=== PATIENT | male | born 1960 | race Caucasian/White ===

== ENCOUNTER 2017-03-06 05:47 | Observation (INO) | payer MEDICARE ==
[~2017-03-06] VITALS: Ht 180.3 cm; Wt 85.9 kg
[~2017-03-06 05:47] MED LIST: HYDR-3516 PO; VENTAER INH
[2017-03-06] MEDS ORDERED: CHLORHEXIDINE GLUCONATE 2 % 1 PACK (2 CLOTHS) TOPICAL PRN (06:15)
[2017-03-06] MEDS ORDERED: LACTATED RINGER'S 1000 ML INJ 1,000 ML IV SCH (06:15)
[2017-03-06] MEDS ORDERED: SODIUM CHLORID 0.9% 500 ML IV PRN (06:15)
[2017-03-06] MEDS ORDERED: METOPROLOL TARTRATE 25 MG TAB PO PRN (06:15)
[2017-03-06] MEDS ORDERED: POVIDONE IODINE 5% (ANTISEPSIS KIT) 4 APPLICATIONS EACH NARE PRN (06:15)
[2017-03-06] MEDS ORDERED: LACTATED RINGER'S 1000 ML IV PRN (06:15)
[2017-03-06] MEDS ORDERED: NALOXONE HCL 0.4 MG/ML AMP ONE (06:47)
[2017-03-06] MEDS ORDERED: ACETAMINOPHEN 1000 MG/100 ML 100 ML IV ONE (06:47)
[2017-03-06] MEDS ORDERED: HYDROmorphone HCL PF 2 MG/ML VIAL ONE (06:47)
[2017-03-06] MEDS ORDERED: PROPOFOL 500 MG/50 ML INJ 200 ML ONE (06:47)
[2017-03-06] MEDS ORDERED: LIDOCAINE 1%/EPINEPHrine 1:100,000 SOLN 50 ML VIAL ONE (06:51)
[2017-03-06] MEDS ORDERED: GELFOAM SIZE 100 ONE (06:51)
[2017-03-06] MEDS ORDERED: GENTAMICIN SULFATE 80 MG/2 ML VIAL ONE (06:51)
[2017-03-06] MEDS ORDERED: THROMBIN (TOPICAL) 5,000 UNIT VIAL ONE (06:51)
[2017-03-06] MEDS ORDERED: FAMOTIDINE 20 MG/2 ML VIAL ONE (07:35)
[2017-03-06] MEDS: ceFAZolin 1,000 MG/NS 100 ML IV SCH ×4 (07:50→11:50)
[2017-03-06] MEDS ORDERED: PROPOFOL 500 MG/50 ML INJ 50 ML ONE ×2 (09:19→09:20)
[2017-03-06] MEDS ORDERED: NEOSTIGMINE 3 MG/3 ML SYR IV ONE (12:00)
[2017-03-06] MEDS ORDERED: LACTATED RINGER'S 1000 ML INJ 2,000 ML IV ONE (12:00)
[2017-03-06] MEDS ORDERED: LIDOCAINE HCL 1% PF 5 ML SYRINGE OTHER ONE (12:00)
[2017-03-06] MEDS ORDERED: ceFAZolin INJ 1,000 MG VIAL IV ONE (12:00)
[2017-03-06] MEDS ORDERED: DEXAMETHASONE SOD PHOS 4 MG/ML VIAL IV ONE (12:00)
[2017-03-06] MEDS ORDERED: GLYCOPYRROLATE 1 MG/5 ML SYRINGE IV PUSH ONE (12:00)
[2017-03-06] MEDS ORDERED: PHENYLEPH/NS 1000 MCG/10 ML SYR IV ONE (12:00)
[2017-03-06] MEDS ORDERED: ePHEDrine/NS 25 MG/5 ML SYR IV ONE (12:00)
[2017-03-06] MEDS ORDERED: ONDANSETRON HCL 4 MG/2 ML VIAL IV PUSH ONE (12:00)
[2017-03-06] MEDS ORDERED: MIDAZOLAM HCL 2 MG/2 ML VIAL IV ONE (12:00)
[2017-03-06] MEDS ORDERED: diphenhydrAMINE HCL 50 MG/ML VIAL ONE ×2 (12:42→13:29)
[2017-03-06] MEDS ORDERED: DO NOT ADM ANY ANTICOAGULANT DRUGS PRN (13:02)
[2017-03-06] MEDS ORDERED: NALOXONE HCL 0.4 MG/ML AMP IV PUSH PRN (13:15)
[2017-03-06] MEDS ORDERED: SODIUM CHLORIDE 0.9% FLUSH 5 ML FLUSH IVF PRN (13:15)
--- NOTE | 2017-03-06 13:26 | PD.OP ---
Operative Report Date of Surgery: Mar 06, 2017 Preoperative Diagnosis: (1) Cervical disc disease with myelopathy (2) Cervical spinal stenosis 1. C3 4 posterior osteophytic disc complex 2. Cervical stenosis 3. Cervical myelopathy Postoperative Diagnosis: (1) Cervical disc disease with myelopathy (2) Cervical spinal stenosis 1. C3 4 herniated nucleus pulposus 2. Cervical stenosis 3. Cervical myelopathy Procedure: 1. C3-4 anterior cervical discectomy 2. C3-4 artificial disc placement (Mobi-C) Anesthesia: Gen. Surgeon: Moises Stoll Medical Transcription(s): Sharon Prado Operation and Findings: Findings: Relatively large soft herniated nucleus pulposis posterior to the annulus with a prominent central annular tear. Tearing of the posterior longitudinal ligament away from the posterior C3 vertebral body margin. No significant osteophyte formation. Procedure in detail: The patient was brought into the operating room and positioned in supine position on the 3080 table with the head and neck in neutral position. Nuñez catheter was placed. Lines were established by Anesthesia. Gen. endotracheal anesthesia was induced without difficulty, taking care not to significantly flex or extend the patient's neck during intubation and positioning. Leads for intraoperative neuro monitoring were placed and a baseline study obtained. All extremities were appropriately padded. The neck and upper chest were shaved with clippers and sterilely prepped and draped. Appropriate timeout procedure was performed with all personnel present and in agreement 1% Xylocaine with epinephrine was used for local infiltration over the incision site which was made transversely at the C3-4 level and carried sharply down through the platysma muscle. The exposure was continued medial to the sternocleidomastoid muscle and carotid artery, and lateral to the trachea and esophagus. The prevertebral fascia was elevated away from the anterior longitudinal ligament with a Kitner sponge. The longus coli muscle on each side was elevated with the Gan elevator. The self-retaining retractor was placed with the blades beneath the longus coli muscle on each side. The appropriate levels were confirmed with intraoperative C-arm and preoperative imaging studies. The microscope was brought into place and used for the remainder of the procedure including the closure. The 14 mm distraction pins were used as needed for gentle distraction during the procedure. The procedure was performed at the C3-4 level. The disc and annulus was incised with a 15 blade knife and discectomy performed with pituitary biopsy forceps and straight and angled curettes. The endplates were thoroughly cleaned with a curette. The TPS drill with the 4 mm barrel bur was used to straighten the anterior margin of the C3 and C4 vertebral body and contour the superior C4 lateral endplate for the artificial disc placement. The thin ligament dissector was used to free up the posterior annulus and ligament from the vertebral body margin. The remainder of the resection of the posterior annulus and ligament as well as the posterior vertebral body margin and bilateral dorsal uncovertebral joint as needed was performed with the 2 and 3 mm thin footplate Kerrison rongeurs. A large component of herniated nucleus pulposus was encountered posterior to the annulus and was lifted away from the thecal sac with the thin ligament dissector and removed. The posterior longitudinal ligament was torn away from the posterior C3 vertebral body margin and was curetted out with the angled curette. Since the patient had a soft disc herniation with no significant osteophyte formation, and the resection of the disc and canal and foraminal decompression could be performed with good preservation of the vertebral body endplates and uncovertebral joint, and since it was no evidence of significant instability, the patient was felt to be a good candidate for a cervical artificial disc placement rather than fusion. This was discussed by telephone with the patient' s during the procedure. I advised her that the fusion at C3 4 level with previous fusion at C5 through 7 level would potentially leave the C4 5 disc vulnerable to increased stress and adjacent level deterioration. The risk of failure of the artificial disc or development of increased instability at the C3 4 level was discussed as well as the possibility of requiring revision surgery in the future. She appeared to understand all the above and agree with placement of the MOBI-C artificial disc. Telephone consent was obtained to reflect the change in the planned procedure. The appropriate size Mobi- C implant was then chosen using the trial. Using anatomic landmarks, and AP and lateral C-arm imaging, the 6 x 15 mm Mobi- C then placed with a good fit of the implant. The blunt nerve hook was used to probe beneath the implant to ensure that there was no impingement on the thecal sac or exiting nerve roots. The entire construct was checked with intraoperative C-arm and felt to be satisfactory. The 10 Setswana drain was brought out through a small incision in the left lower neck and secured to the skin with nylon suture and attached to sterile suction. The closure was performed with 3-0 Vicryl running for the platysma and interrupted for the subcutaneous closure, with 4-0 Vicryl running for the subcuticular closure. A dressing of sterile Mastisol, Steri-Strips, and Primapore dressing was placed. The patient was taken to recovery room in stable condition. All counts were correct at the end of the case. Estimated blood loss was 200 cc No specimen was sent to pathology. Intraoperative neuro monitoring remained stable during the procedure. Moises Stoll MD Mar 06, 2017 13:26
[2017-03-06] MEDS ORDERED: SUGAMMADEX SODIUM 200 MG/2 ML VIAL IV PUSH ONE ×2 (13:30)
[2017-03-06] MEDS ORDERED: *morphine SULFATE 8 MG/ML PERIprocedure ONLY ONE (13:31)
[2017-03-06] MEDS ORDERED: ACETAMINOPHEN/HYDROcodone 325 MG/5 MG TAB PO PRN (14:00)
[2017-03-06] MEDS ORDERED: ONDANSETRON HCL 4 MG/2 ML VIAL IV PUSH PRN (14:00)
[2017-03-06] MEDS ORDERED: HYDROmorphone HCL PF 1 MG/ML VIAL IV PUSH PRN (14:00)
[2017-03-06] MEDS: D5-1/2 NS + KCL 20 MEQ INJ 1,000 ML IV SCH (14:00)
--- NOTE | 2017-03-06 14:18 | RADRPT ---
EXAM DATE/TIME: 03/06/2017 09:06 [facility] COMPARISON: No previous studies available for comparison. INDICATIONS : C3-4 artificial disc placement. MEDICAL HISTORY : None. SURGICAL HISTORY : None. ENCOUNTER: Initial ACUITY: 1 day PAIN SCORE: Non-responsive. LOCATION: Bilateral C-spine FINDINGS: 3 fluoroscopic images of the upper cervical spine. There is a partially imaged anterior plate and scr ew fixation at C5-7. Intradiscal hardware at C3-4. Hardware appears intact and well-positioned. Sagit sara alignment is maintained in the upper cervical spine. Vertebral body heights are intact. No signif icant acute fracture. CONCLUSION: 1. Intact intradiscal hardware at C3-4 in anatomic alignment without acute fracture. 2. Partially imaged anterior plate and screw fixation at C5-7. Travis Avina MD on March 06, 2017 at 14:13 Board Certified Radiologist. This report was verified electronically.
--- NOTE | 2017-03-06 15:17 | EKG ---
Date Performed: 03/06/2017 Time Performed: 06:46:23 PTAGE: 57 years EKG: Sinus rhythm NORMAL ECG NO PREVIOUS TRACING DOCTOR: Taya Mackey Interpretating Date/Time 03/06/2017 15:16:26
[2017-03-06 16:25] VITALS: BP 146/84; PULSE 87; RESP 19; TEMP 98.2; O2SAT 96
[2017-03-06 16:37] VITALS: BP 146/84; PULSE 87; RESP 19; TEMP 98.2; O2SAT 96
[2017-03-06] MEDS: MORPHINE SULFATE 4 MG/ML INJ IV PUSH PRN ×2 (17:35→22:14)
[2017-03-06 20:32] VITALS: BP 144/75; PULSE 82; RESP 18; TEMP 97.5; O2SAT 95
[2017-03-06] MEDS: SODIUM CHLORIDE 0.9% FLUSH 5 ML FLUSH IVF SCH (21:00)
[2017-03-06] MEDS: DOCUSATE SODIUM 100 MG CAP PO SCH (21:10)
[2017-03-06] MEDS: ACETAMINOPHEN/HYDROcodone 325 MG/10 MG TAB PO PRN (21:11)
[2017-03-06] MEDS: TOBRAMYCIN SULFATE 0.3% OPTH OINT 3.5 GM TUBE LEFT EYE SCH (22:14)
[2017-03-07] MEDS: D5-1/2 NS + KCL 20 MEQ INJ 1,000 ML IV SCH (00:35)
[2017-03-07 01:17] VITALS: BP 139/76; PULSE 97; RESP 20; TEMP 98; O2SAT 95
[2017-03-07] MEDS: ACETAMINOPHEN/HYDROcodone 325 MG/10 MG TAB PO PRN ×3 (01:54→14:55)
[2017-03-07] MEDS: MORPHINE SULFATE 4 MG/ML INJ IV PUSH PRN (04:16)
[2017-03-07] MEDS: TOBRAMYCIN SULFATE 0.3% OPTH OINT 3.5 GM TUBE LEFT EYE SCH ×2 (05:35→14:55)
[2017-03-07 06:07] VITALS: BP_SYST 149; BP_DIAS 74; BP_DIAS 80; PULSE 74; PULSE 84; RESP 20; TEMP 98; TEMP 98.2; O2SAT 93; O2SAT 94
[2017-03-07 07:41] VITALS: BP 139/83; PULSE 86; RESP 19; TEMP 97.6; O2SAT 92
[2017-03-07] MEDS: SODIUM CHLORIDE 0.9% FLUSH 5 ML FLUSH IVF SCH (09:00)
[2017-03-07] MEDS ORDERED: PANTOPRAZOLE SOD 40 MG DELAYED RELEASE TAB PO SCH (09:00)
--- NOTE | 2017-03-07 09:03 | HHI.NSPN ---
History Chief Complaint: nausea Interval History Postop day #1 C3-4 artificial disc placement for large herniated nucleus pulposis with stenosis and cervical myelopathy. He states that he was nauseated last night. Has moderate discomfort over the incision site. His upper extremity numbness has essentially resolved postoperative period complaining of radiating pain or any weakness in extremities. He is tolerating liquids. No new hoarseness of voice. He has some pre- existing hoarseness due to smoking. He has some mild cough-mostly nonproductive which she states started when he stopped the cigarettes. Exam Results Vital Signs Date Time Temp Pulse Resp B/P (MAP) Pulse Ox O2 Delivery O2 Flow Rate FiO2 03/07/17 07:41 97.6 86 19 139/83 (101) 92 03/06/17 15:00 Room Air 03/06/17 14:15 2 Intake and Output 03/07/17 03/07/17 03/08/17 08:00 16:00 00:00 Intake Total 300 ml Output Total 310 ml Balance -10 ml Physical Examination Gen.: Sitting up in bed. Appears relatively comfortable. The braces in place. Respirations: Clear to auscultation. 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 Medical Decision Making Impression and Plan Impression: Doing well postoperative. Improved sensation of her extremities. Plan: Findings discussed with the patient and his . His neck drain will be discontinued. Increased I just tolerated to soft. Diet restrictions discussed. I again advised him to avoid smoking and NSAIDs for 3 months postop. Decision regarding artificial disc placement discussed with the patient and his and he understands and agrees. Discontinue IV fluids Physical therapy this morning since he is a little dizzy getting out of bed. Anticipate discharge home today. Activity precautions, wound care, signs and symptoms to watch for fully discussed and all questions answered. Moises Stoll MD Mar 07, 2017 09:02
[2017-03-07] MEDS: DOCUSATE SODIUM 100 MG CAP PO SCH (09:27)
[2017-03-07 11:53] VITALS: BP 144/72; PULSE 82; RESP 20; TEMP 97.6; O2SAT 92
[2017-03-07 16:07] VITALS: BP 147/86; PULSE 81; RESP 20; TEMP 98; O2SAT 93
[2017-03-07] MEDS ORDERED: TOBR.3%O LEFT EYE (16:25)
--- NOTE | 2017-03-07 16:29 | HHI.DCPOC ---
Discharge Care Plan Your Health Problems Are: Incision/Drains Goals to Promote Your Health * To prevent worsening of your condition and complications * To maintain your health at the optimal level Wear the cervical collar when up. If sitting or laying still the collar may be off. No lifting, bending, pushing, pulling or other strenuous activity. Leave the dressing on over the surgical incisions for 1 week. After that you may take the outer dressing off but leave the steri-strips on and let them fall off on their own. No showering until the surgical incision is totally healed. Take the pain medication as prescribed. Avoid taking any medication that contains aspirin or NSAIDs (ibuprofen, naproxen , Motrin, Advil, Naprosyn) for at least a month. Do not smoke as that delays healing. Follow up in the office in 2 weeks for a wound check. Directions to Meet Your Goals Take your medications as prescribed Follow your dietary instruction Follow activity as directed Wear the cervical collar when up. If sitting or laying still the collar may be off. No lifting, bending, pushing, pulling or other strenuous activity. Leave the dressing on over the surgical incisions for 1 week. After that you may take the outer dressing off but leave the steri-strips on and let them fall off on their own. No showering until the surgical incision is totally healed. Take the pain medication as prescribed. Avoid taking any medication that contains aspirin or NSAIDs (ibuprofen, naproxen , Motrin, Advil, Naprosyn) for at least a month. Do not smoke as that delays healing. Follow up in the office in 2 weeks for a wound check. Keep your appointments as scheduled Take your immunizations and boosters as scheduled If your symptoms worsen call your PCP, if no PCP go to Urgent Care Center or Emergency Room Smoking is Dangerous to Your Health. Avoid second hand smoke Call the 24-hour hour crisis hotline for domestic abuse at Manjit Muniz Mar 07, 2017 16:29 Moises Stoll MD Mar 08, 2017 00:46
--- NOTE | 2017-03-07 16:36 | HHI.DS ---
Manjit Muniz [facility] 03/07/17 1636: Discharge Summary Admission Date Mar 06, 2017 at 13:11 Discharge Date: Mar 07, 2017 Admitting Diagnosis (1) Cervical spinal stenosis Diagnosis: Principal ICD Code: M48.02 - Spinal stenosis, cervical region (2) Cervical disc disease with myelopathy Diagnosis: Secondary ICD Code: M50.00 - Cervical disc disorder with myelopathy, unspecified cervical region Procedures : 1. C3-4 anterior cervical discectomy 2. C3-4 artificial disc placement (Mobi-C) Hospital Course Postop day #1 C3-4 artificial disc placement for large herniated nucleus pulposis with stenosis and cervical myelopathy. He states that he was nauseated last night. Has moderate discomfort over the incision site. His upper extremity numbness has essentially resolved postoperative period complaining of radiating pain or any weakness in extremities. He is tolerating liquids. No new hoarseness of voice. He has some pre- existing hoarseness due to smoking. He has some mild cough-mostly nonproductive which she states started when he stopped the cigarettes. Physical Therapy evaluated the patient and felt that he was able to be discharged home safely without any skilled needs. Pt Condition on Discharge: Good Discharge Disposition: Discharge Home Discharge Instructions DIET: Follow Instructions for: As Tolerated, No Restrictions ACTIVITIES You can perform: Full Weight Bearing Activities to Avoid: Lifting/Bending, Strenuous Activity, Bathing, Shower ADDITIONAL Activity Instructio: Wear the cervical collar when up. If sitting or laying still the collar may be off. No lifting, bending, pushing, pulling or other strenuous activity. Additional Information Leave the dressing on over the surgical incisions for 1 week. After that you may take the outer dressing off but leave the steri-strips on and let them fall off on their own. No showering until the surgical incision is totally healed. Take the pain medication as prescribed. Avoid taking any medication that contains aspirin or NSAIDs (ibuprofen, naproxen , Motrin, Advil, Naprosyn) for at least a month. Do not smoke as that delays healing. Follow up in the office in 2 weeks for a wound check. Moises Stoll MD 03/08/17 0045: Attending Statement The exam, history, and the medical decision-making described in the above note were completed with the assistance of the mid-level provider. I reviewed and agree with the findings presented. I attest that I had a [id number] encounter with the patient on the same day, and personally performed and documented my assessment and findings in the medical record. Manjit Muniz Mar 07, 2017 16:36 Moises Stoll MD Mar 08, 2017 00:45
[2017-03-08] MEDS ORDERED: HYDR1SOL6 PO (09:56)
== END 2017-03-07 18:39 | disposition home or self-care (01) ==
LOC: HSDC 05:47 → EDSTATUS 08:30 → HSDI 13:11 → N05B 15:17
PROVIDERS: ADMIT Neurological Surgery; ATTEND Neurological Surgery
DX: M48.02 Spinal stenosis, cervical region (principal); M50.00 Cervical disc disorder with myelopathy, unspecified cervical region; R05 Cough; F17.200 Nicotine dependence, unspecified, uncomplicated
CPT/HCPCS: 00600; 20930; 22551; 22845; 72040; 76000; 93005; 94150; 96374; 96376; 97163; C1889; G0378; G8987; G8988; J0131; J0690; J1100; J1170; J1200; J1580; J2250; J2270; J2310; J2370; J2405; J2710; J3010; J3480; J7120; L0150; L0172